=== PATIENT | female | born 2000 | race Caucasian/White ===

== ENCOUNTER 2020-03-25 11:49 | Emergency (ER) | payer MEDICAID ==
[~2020-03-25] VITALS: Ht 170 cm; Wt 136.0 kg
--- NOTE | 2020-03-25 12:26 | ED GI ---
General Chief Complaint: Abdominal/GI Problems Stated Complaint: N/V Nursing Triage Note: Pt reports n/v/d since yesterday. Also c/o intermittent midline abd cramping Sepsis Screen: No Definite Risk Source of Information: Patient Exam Limitations: No Limitations History of Present Illness Date Seen by Provider: Mar 25, 2020 Time Seen by Provider: 12:25 Initial Comments Very pleasant 20-year-old female presents to ER with nausea vomiting diarrhea that began yesterday. Diarrhea is watery and without blood or mucus. She has not had any diarrhea today but she did vomit 3 times today. She has some periumbilical abdominal pain and some mid back pain. No fevers or chills. She has not eaten out and has not been around anybody with nausea vomiting diarrhea. Timing/Duration: 1-2 Days Severity/Quality: Cramping Radiation: Periumbilical Activities at Onset: None Associated Symptoms: Nausea/Vomiting Allergies and Home Medications Allergies Coded Allergies: No Known Drug Allergies (Unverified , 03/25/20) Patient Home Medication List Home Medication List Reviewed: Yes Review of Systems Review of Systems Constitutional: see HPI EENTM: No Symptoms Reported Respiratory: No Symptoms Reported Cardiovascular: No Symptoms Reported Gastrointestinal: See HPI, Abdominal Pain Genitourinary: No Symptoms Reported Musculoskeletal: no symptoms reported Skin: no symptoms reported Psychiatric/Neurological: No Symptoms Reported Endocrine: No Symptoms Reported Hematologic/Lymphatic: No Symptoms Reported Past Ubziotu-Dkhzmk-Iwovhd Hx Patient Social History Alcohol Use: Denies Use Smoking Status: Never a Smoker Recent Infectious Disease Expo: No Recent Hopitalizations: No Seasonal Allergies Seasonal Allergies: No Past Medical History Surgeries: Yes (foot surgery x2) Section Respiratory: No Cardiac: No Neurological: No Genitourinary: No Gastrointestinal: No Musculoskeletal: No Endocrine: No HEENT: No Cancer: No Psychosocial: No Integumentary: No Blood Disorders: No Physical Exam Vital Signs Vital Signs - First Documented 03/25/20 12:09 Temp 36.7 Pulse 99 Resp 18 B/P (MAP) 135/96 (109) Pulse Ox 96 O2 Delivery Room Air Capillary Refill : Less Than 3 Seconds Height/Weight/BMI Height: '" Weight: lbs. oz. kg; 47.00 BMI Method: General Appearance: WD/WN, no apparent distress Neck: non-tender, full range of motion Respiratory: no respiratory distress, no accessory muscle use Gastrointestinal: normal bowel sounds, soft, tenderness Extremities: normal range of motion, non-tender Neurologic/Psychiatric: alert, normal mood/affect, oriented x 3 Skin: normal color, warm/dry Progress/Results/Core Measures Results/Orders Lab Results Laboratory Tests Test 03/25/20 12:24 03/25/20 13:02 Range/Units White Blood Count 12.0 H 4.3-11.0 10^3/uL Red Blood Count 5.35 H 3.80-5.11 10^6/uL Hemoglobin 14.2 11.5-16.0 g/dL Hematocrit 43 35-52 % Mean Corpuscular Volume 80 80-99 fL Mean Corpuscular Hemoglobin 27 25-34 pg Mean Corpuscular Hemoglobin Concent 33 32-36 g/dL Red Cell Distribution Width 13.8 10.0-14.5 % Platelet Count 257 130-400 10^3/uL Mean Platelet Volume 12.3 H 9.0-12.2 fL Immature Granulocyte % (Auto) 0 % Neutrophils (%) (Auto) 68 42-75 % Lymphocytes (%) (Auto) 21 12-44 % Monocytes (%) (Auto) 7 0-12 % Eosinophils (%) (Auto) 2 0-10 % Basophils (%) (Auto) 1 0-10 % Neutrophils # (Auto) 8.2 H 1.8-7.8 10^3/uL Lymphocytes # (Auto) 2.6 1.0-4.0 10^3/uL Monocytes # (Auto) 0.8 0.0-1.0 10^3/uL Eosinophils # (Auto) 0.3 0.0-0.3 10^3/uL Basophils # (Auto) 0.1 0.0-0.1 10^3/uL Immature Granulocyte # (Auto) 0.1 0.0-0.1 10^3/uL Sodium Level 137 135-145 MMOL/L Potassium Level 4.0 3.6-5.0 MMOL/L Chloride Level 102 98-107 MMOL/L Carbon Dioxide Level 22 21-32 MMOL/L Anion Gap 13 5-14 MMOL/L Blood Urea Nitrogen 9 7-18 MG/DL Creatinine 0.84 0.60-1.30 MG/DL Estimat Glomerular Filtration Rate > 60 BUN/Creatinine Ratio 11 Glucose Level 265 H 70-105 MG/DL Calcium Level 9.1 8.5-10.1 MG/DL Corrected Calcium 9.1 8.5-10.1 MG/DL Total Bilirubin 0.5 0.1-1.0 MG/DL Aspartate Amino Transf (AST/SGOT) 58 H 5-34 U/L Alanine Aminotransferase (ALT/SGPT) 38 0-55 U/L Alkaline Phosphatase 144 H 40-136 U/L Total Protein 8.0 6.4-8.2 GM/DL Albumin 4.0 3.2-4.5 GM/DL Lipase 23 8-78 U/L Procalcitonin 0.04 <0.10 NG/ML Serum Test, Qualitative NEGATIVE NEGATIVE Urine Color YELLOW Urine Clarity CLEAR Urine pH 6.5 5-9 Urine Specific [place] 1.015 L 1.016-1.022 Urine Protein 1+ H NEGATIVE Urine Glucose (UA) NEGATIVE NEGATIVE Urine Ketones TRACE H NEGATIVE Urine Nitrite NEGATIVE NEGATIVE Urine Bilirubin NEGATIVE NEGATIVE Urine Urobilinogen 0.2 < = 1.0 MG/DL Urine Leukocyte Esterase NEGATIVE NEGATIVE Urine RBC (Auto) NEGATIVE NEGATIVE Urine RBC NONE /HPF Urine WBC 2-5 /HPF Urine Squamous Epithelial Cells 10-25 H /HPF Urine Crystals NONE /LPF Urine Bacteria TRACE /HPF Urine Casts NONE /LPF Urine Mucus NEGATIVE /LPF Urine Culture Indicated NO My Orders Orders - CLAIR SALDIVAR APRN Cbc With Automated Diff (03/25/20 12:20) Comprehensive Metabolic Panel (03/25/20 12:20) Ed Iv/Invasive Line Start (03/25/20 12:20) Hcg,Qualitative Serum (03/25/20 12:20) Ns Iv 1000 Ml (Sodium Chloride 0.9%) (03/25/20 12:30) Ondansetron Injection (Zofran Injectio (03/25/20 12:30) Lipase (03/25/20 12:23) Hyoscyamine Sl Tablet (Levsin Sl Tablet) (03/25/20 12:30) Ketorolac Injection (Toradol Injection) (03/25/20 12:30) Procalcitonin (Pct) (03/25/20 12:23) Medications Given in ED Current Medications Medications Dose Ordered Sig/Maryanne Route Start Time Stop Time Status Last Admin Dose Admin Hyoscyamine Sulfate 0.25 mg ONCE ONCE PO 03/25/20 12:30 03/25/20 12:31 DC 03/25/20 12:32 0.25 MG Ketorolac Tromethamine 15 mg ONCE ONCE IVP 03/25/20 12:30 03/25/20 12:31 DC 03/25/20 12:34 15 MG Ondansetron HCl 8 mg ONCE ONCE IVP 03/25/20 12:30 03/25/20 12:31 DC 03/25/20 12:32 8 MG Vital Signs/I&O 03/25/20 12:09 Temp 36.7 Pulse 99 Resp 18 B/P (MAP) 135/96 (109) Pulse Ox 96 O2 Delivery Room Air Blood Pressure Mean: 109 Departure Impression Primary Impression: Nausea and vomiting Additional Impression: Diarrhea Disposition: 01 HOME, SELF-CARE Condition: Stable Departure-Patient Inst. Decision time for Depature: 13:36 Referrals: NO,LOCAL PHYSICIAN (PCP/Family) Primary Care Physician Patient Instructions: No Instuctions Given Add. Discharge Instructions: 1. Return to ER for any concerns. Drink plenty of liquids such as Pedialyte or diluted Gatorade or plain water is fine as well. Return to ER for any worsening. Follow-up with your doctor next week. Nausea medication as directed and you can use [id number] Imodium as well for diarrhea control. All discharge instructions reviewed with patient and/or family. Voiced understanding. Scripts Ondansetron (Ondansetron Odt) 4 Mg Tab.rapdis 4 MG PO Q6H PRN for NAUSEA/VOMITING, #8 TAB 0 Refills Prov: CLAIR SALDIVAR APRN 03/25/20 CLAIR SALDIVAR APRN Mar 25, 2020 12:26
[2020-03-25] MEDS ORDERED: HYOSCYAMINE 0.125 MG (LEVSIN) TAB PO ONE (12:30)
[2020-03-25] MEDS ORDERED: NS IV 1000 ML 1,000 ML IV SCH (12:30)
[2020-03-25] MEDS ORDERED: ONDANSETRON 4 MG/2 ML (SDV) Z0FRAN IVP ONE (12:30)
[2020-03-25] MEDS ORDERED: KETOROLAC 30 MG/ML VIAL IVP ONE (12:30)
[2020-03-25 12:31] LABS: BASOPHILS # (AUTO) 0.1 10^3/uL (0.0-0.1); BASOPHILS % (AUTO) 1 % (0-10); EOSINOPHILS # (AUTO) 0.3 10^3/uL (0.0-0.3); EOSINOPHILS % (AUTO) 2 % (0-10); HEMATOCRIT 43 % (35-52); HEMOGLOBIN 14.2 g/dL (11.5-16.0); LYMPHOCYTES # (AUTO) 2.6 10^3/uL (1.0-4.0); LYMPHOCYTES % (AUTO) 21 % (12-44); MEAN CORPUSCULAR HEMOGLOBIN 27 pg (25-34); MEAN CORPUSCULAR HGB CONC 33 g/dL (32-36); MEAN CORPUSCULAR VOLUME 80 fL (80-99); MEAN PLATELET VOLUME 12.3 fL (9.0-12.2); MONOCYTES # (AUTO) 0.8 10^3/uL (0.0-1.0); MONOCYTES % (AUTO) 7 % (0-12); NEUTROPHILS # (AUTO) 8.2 10^3/uL (1.8-7.8); NEUTROPHILS % (AUTO) 68 % (42-75); PLATELET COUNT 257 10^3/uL (130-400)
[2020-03-25 12:40] LABS: CHLORIDE 102 MMOL/L (98-107); SODIUM 137 MMOL/L (135-145)
[2020-03-25 12:41] LABS: CALCIUM 9.1 MG/DL (8.5-10.1)
[2020-03-25 12:42] LABS: GLUCOSE 265 MG/DL (70-105)
[2020-03-25 12:43] LABS: CARBON DIOXIDE 22 MMOL/L (21-32)
[2020-03-25 12:44] LABS: BILIRUBIN,TOTAL 0.5 MG/DL (0.1-1.0)
[2020-03-25 12:45] LABS: ALKALINE PHOSPHATASE 144 U/L (40-136)
[2020-03-25 12:46] LABS: CREATININE SERUM 0.84 MG/DL (0.60-1.30); GFR ESTIMATED > 60
[2020-03-25 12:47] LABS: BUN/CREATININE RATIO 11
[2020-03-25 12:48] LABS: ALANINE AMINOTRANSFERASE 38 U/L (0-55)
[2020-03-25 12:49] LABS: LIPASE 23 U/L (8-78)
[2020-03-25 13:09] LABS: BILIRUBIN,URINE NEGATIVE (NEGATIVE); CLARITY,URINE CLEAR; COLOR,URINE YELLOW; GLUCOSE, URINE (UA) NEGATIVE (NEGATIVE); KETONES,URINE TRACE (NEGATIVE); LEUKOCYTE ESTERASE ,URINE NEGATIVE (NEGATIVE); NITRITE,URINE NEGATIVE (NEGATIVE); PH,URINE 6.5 (5-9); PROTEIN,URINE 1+ (NEGATIVE)
[2020-03-25 13:16] LABS: BACTERIA,URINE TRACE /HPF
[2020-03-25] MEDS ORDERED: ONDA4TAB11 PO (13:44)
[2020-03-25 14:12] VITALS: BP 135/110
== END 2020-03-25 14:12 | disposition home or self-care (01) ==
LOC: EDUNIT# 11:49 → ER 11:50
DX: R11.2 Nausea with vomiting, unspecified (principal); R19.7 Diarrhea, unspecified
CPT/HCPCS: 36415; 80053; 81000; 83690; 84145; 84703; 85025

== ENCOUNTER 2020-09-14 04:56 | Emergency (ER) | payer MEDICAID ==
[~2020-09-14] VITALS: Ht 170 cm; Wt 136.0 kg
[~2020-09-14 04:56] MED LIST: ONDA4TAB11 PO
[2020-09-14] MEDS ORDERED: KETOROLAC 30 MG/ML VIAL ONE (05:43)
[2020-09-14] MEDS ORDERED: LACTATED RINGERS 1,000 ML IV ONE ×2 (05:43→05:45)
[2020-09-14] MEDS ORDERED: ONDANSETRON 4 MG/2 ML (SDV) Z0FRAN ONE (05:43)
[2020-09-14] MEDS ORDERED: ACETAMINOPHEN 500 MG TAB (TYLENOL) ONE (05:43)
[2020-09-14] MEDS ORDERED: ACETAMINOPHEN 500 MG TAB (TYLENOL) PO ONE (05:45)
[2020-09-14] MEDS ORDERED: KETOROLAC 30 MG/ML VIAL IVP ONE (05:45)
[2020-09-14] MEDS ORDERED: ONDANSETRON 4 MG/2 ML (SDV) Z0FRAN IVP ONE (05:45)
[2020-09-14 05:57] LABS: BILIRUBIN,URINE NEGATIVE (NEGATIVE); CLARITY,URINE SL CLOUDY; COLOR,URINE YELLOW; GLUCOSE, URINE (UA) 2+ (NEGATIVE); KETONES,URINE 1+ (NEGATIVE); LEUKOCYTE ESTERASE ,URINE NEGATIVE (NEGATIVE); NITRITE,URINE NEGATIVE (NEGATIVE); PROTEIN,URINE TRACE (NEGATIVE)
[2020-09-14 06:00] LABS: BASOPHILS % (AUTO) 0 % (0-10); EOSINOPHILS % (AUTO) 0 % (0-10); HEMATOCRIT 42 % (35-52); HEMOGLOBIN 13.3 g/dL (11.5-16.0); LYMPHOCYTES % (AUTO) 18 % (12-44); MEAN CORPUSCULAR HEMOGLOBIN 25 pg (25-34); MEAN CORPUSCULAR HGB CONC 32 g/dL (32-36); MEAN CORPUSCULAR VOLUME 77 fL (80-99); MEAN PLATELET VOLUME 12.2 fL (9.0-12.2); MONOCYTES # (AUTO) 1.2 10^3/uL (0.0-1.0); MONOCYTES % (AUTO) 21 % (0-12); NEUTROPHILS # (AUTO) 3.5 10^3/uL (1.8-7.8); NEUTROPHILS % (AUTO) 60 % (42-75); PLATELET COUNT 248 10^3/uL (130-400); WHITE BLOOD COUNT 5.8 10^3/uL (4.3-11.0)
[2020-09-14 06:08] LABS: ALBUMIN 4.1 GM/DL (3.2-4.5); POTASSIUM 3.8 MMOL/L (3.6-5.0)
[2020-09-14 06:09] LABS: CALCIUM 9.1 MG/DL (8.5-10.1)
[2020-09-14 06:11] LABS: TOTAL PROTEIN 7.8 GM/DL (6.4-8.2)
[2020-09-14 06:12] LABS: BILIRUBIN,TOTAL 0.3 MG/DL (0.1-1.0)
[2020-09-14 06:14] LABS: CREATININE SERUM 0.83 MG/DL (0.60-1.30)
[2020-09-14 06:23] LABS: BACTERIA,URINE FEW /HPF
[2020-09-14] MEDS ORDERED: ONDA4TAB11 SL (06:48)
--- NOTE | 2020-09-14 06:48 | ED General ---
General Chief Complaint: Cough/Cold/Flu Symptoms Stated Complaint: VOMITING,POSS FEVER,JIMENEZ,EYES BURN,BODY ACHES Nursing Triage Note: PT PRESENTS TO THE ED C/O DIZZYNESS, CONGESTION, FATIGUE, EXERTIONAL SOB, AND FEVER THAT ALL ONSET THIS SATURDAY. PT STATES SHE HAS HAD INCREASING DIZZYNESS AND POOR APPETITE, STATES ALL HER FOOD TASTES BAD. ALSO REPORTS PRODUCTIVE COUGH AND SEVERE JIMENEZ Source of Information: Patient Exam Limitations: No Limitations History of Present Illness Date Seen by Provider: Sep 14, 2020 Allergies and Home Medications Allergies Coded Allergies: No Known Drug Allergies (Unverified , 03/25/20) Home Medications Ondansetron 4 Mg Tab.rapdis, 4 MG PO Q6H PRN for NAUSEA/VOMITING Prescribed by: CLAIR SALDIVAR on 03/25/20 1344 Ondansetron 4 Mg Tab.rapdis, 4 MG SL Q4H PRN for NAUSEA/VOMITING Prescribed by: CHUY KIM on 09/14/20 0648 Past Yxbcvyz-Ynwnkb-Fxiejl Hx Patient Social History Tobacco Use?: No Substance use?: No Alcohol Use?: No Immunizations Up To Date Influenza Vaccine Up-to-Date: Yes; Up-to-Date Seasonal Allergies Seasonal Allergies: No Past Medical History Surgery/Hospitalization HX: NIDDM Surgeries: Yes (foot surgery x2) Section Respiratory: No Cardiac: No Neurological: No Last Menstrual Period: Sep 10, 2020 Genitourinary: No Gastrointestinal: No Musculoskeletal: No Endocrine: No HEENT: No Cancer: No Psychosocial: No Integumentary: No Blood Disorders: No Physical Exam Vital Signs Vital Signs - First Documented 09/14/20 05:09 Temp 38.3 Pulse 112 Resp 22 B/P (MAP) 142/98 (113) Pulse Ox 96 O2 Delivery Room Air Capillary Refill : Less Than 3 Seconds Height, Weight, BMI Height: '" Weight: lbs. oz. kg; 47.00 BMI Method: Progress/Results/Core Measures Suspected Sepsis SIRS Temperature: Pulse: 112 Respiratory Rate: 22 Laboratory Tests 09/14/20 05:36: White Blood Count 5.8 Blood Pressure 142 /98 Mean: 113 Laboratory Tests 09/14/20 05:36: Creatinine 0.83, Platelet Count 248, Total Bilirubin 0.3 Results/Orders Lab Results Laboratory Tests Test 09/14/20 05:36 Range/Units White Blood Count 5.8 4.3-11.0 10^3/uL Red Blood Count 5.43 H 3.80-5.11 10^6/uL Hemoglobin 13.3 11.5-16.0 g/dL Hematocrit 42 35-52 % Mean Corpuscular Volume 77 L 80-99 fL Mean Corpuscular Hemoglobin 25 25-34 pg Mean Corpuscular Hemoglobin Concent 32 32-36 g/dL Red Cell Distribution Width 15.2 H 10.0-14.5 % Platelet Count 248 130-400 10^3/uL Mean Platelet Volume 12.2 9.0-12.2 fL Immature Granulocyte % (Auto) 1 % Neutrophils (%) (Auto) 60 42-75 % Lymphocytes (%) (Auto) 18 12-44 % Monocytes (%) (Auto) 21 H 0-12 % Eosinophils (%) (Auto) 0 0-10 % Basophils (%) (Auto) 0 0-10 % Neutrophils # (Auto) 3.5 1.8-7.8 10^3/uL Lymphocytes # (Auto) 1.0 1.0-4.0 10^3/uL Monocytes # (Auto) 1.2 H 0.0-1.0 10^3/uL Eosinophils # (Auto) 0.0 0.0-0.3 10^3/uL Basophils # (Auto) 0.0 0.0-0.1 10^3/uL Immature Granulocyte # (Auto) 0.1 0.0-0.1 10^3/uL Neutrophils % (Manual) 48 % Lymphocytes % (Manual) 24 % Monocytes % (Manual) 19 % Metamyelocytes % 3 % Band Neutrophils 6 % Microcytosis MODERATE Urine Color YELLOW Urine Clarity SL CLOUDY Urine pH 6.0 5-9 Urine Specific [place] >=1.030 1.016-1.022 Urine Protein TRACE H NEGATIVE Urine Glucose (UA) 2+ H NEGATIVE Urine Ketones 1+ H NEGATIVE Urine Nitrite NEGATIVE NEGATIVE Urine Bilirubin NEGATIVE NEGATIVE Urine Urobilinogen 0.2 < = 1.0 MG/DL Urine Leukocyte Esterase NEGATIVE NEGATIVE Urine RBC (Auto) NEGATIVE NEGATIVE Urine RBC NONE /HPF Urine WBC 2-5 /HPF Urine Squamous Epithelial Cells 10-25 H /HPF Urine Crystals NONE /LPF Urine Bacteria FEW H /HPF Urine Casts NONE /LPF Urine Mucus SMALL H /LPF Urine Culture Indicated YES Sodium Level 136 135-145 MMOL/L Potassium Level 3.8 3.6-5.0 MMOL/L Chloride Level 103 98-107 MMOL/L Carbon Dioxide Level 20 L 21-32 MMOL/L Anion Gap 13 5-14 MMOL/L Blood Urea Nitrogen 9 7-18 MG/DL Creatinine 0.83 0.60-1.30 MG/DL Estimat Glomerular Filtration Rate 88 BUN/Creatinine Ratio 11 Glucose Level 189 H 70-105 MG/DL Calcium Level 9.1 8.5-10.1 MG/DL Corrected Calcium 9.0 8.5-10.1 MG/DL Magnesium Level 2.0 1.6-2.4 MG/DL Total Bilirubin 0.3 0.1-1.0 MG/DL Aspartate Amino Transf (AST/SGOT) 71 H 5-34 U/L Alanine Aminotransferase (ALT/SGPT) 58 H 0-55 U/L Alkaline Phosphatase 116 40-136 U/L Total Protein 7.8 6.4-8.2 GM/DL Albumin 4.1 3.2-4.5 GM/DL Influenza Type A (RT-PCR) Not Detected Not Detecte Influenza Type B (RT-PCR) Not Detected Not Detecte SARS-CoV-2 RNA (RT-PCR) Detected H Not Detecte My Orders Orders - CHUY SNEED MD Covid 19 Inhouse Test (09/14/20 05:16) Influenza A And B By Pcr (09/14/20 05:16) Acetaminophen Tablet (Tylenol Tablet) (09/14/20 05:45) Ondansetron Injection (Zofran Injectio (09/14/20 05:45) Ketorolac Injection (Toradol Injection) (09/14/20 05:45) Lactated Ringers (Lr 1000 Ml Iv Solution (09/14/20 05:45) Cbc With Automated Diff (09/14/20 05:44) Comprehensive Metabolic Panel (09/14/20 05:44) Magnesium (09/14/20 05:44) Ua Culture If Indicated (09/14/20 05:44) Urine Bedside (09/14/20 05:44) Acetaminophen Tablet (Tylenol Tablet) (09/14/20 05:43) Ketorolac Injection (Toradol Injection) (09/14/20 05:43) Ondansetron Injection (Zofran Injectio (09/14/20 05:43) Lactated Ringers (Lr 1000 Ml Iv Solution (09/14/20 05:43) Manual Differential (09/14/20 05:36) Urine Culture (09/14/20 05:36) Medications Given in ED Current Medications Medications Dose Ordered Sig/Maryanne Route Start Time Stop Time Status Last Admin Dose Admin Acetaminophen 1,000 mg ONCE ONCE PO 09/14/20 05:45 09/14/20 05:46 DC 09/14/20 05:47 1,000 MG Ketorolac Tromethamine 15 mg ONCE ONCE IVP 09/14/20 05:45 09/14/20 05:46 DC 09/14/20 05:46 15 MG Lactated Ringer's 1,000 ml @ 0 mls/hr Q0M ONCE IV 09/14/20 05:45 09/14/20 05:46 DC 09/14/20 05:46 1,000 MLS/HR Ondansetron HCl 4 mg ONCE ONCE IVP 09/14/20 05:45 09/14/20 05:46 DC 09/14/20 05:46 4 MG Vital Signs/I&O 09/14/20 09/14/20 09/14/20 09/14/20 05:09 05:10 05:46 05:47 Temp 38.3 38.7 38.7 Pulse 112 Resp 22 B/P (MAP) 142/98 (113) Pulse Ox 96 O2 Delivery Room Air Room Air Capillary Refill : Less Than 3 Seconds Blood Pressure Mean: 113 Departure Impression Primary Impression: COVID-19 Additional Impression: Hypovolemia Disposition: 01 HOME, SELF-CARE Condition: Improved Departure-Patient Inst. Decision time for Depature: 06:44 Referrals: NO,LOCAL PHYSICIAN (PCP/Family) Primary Care Physician Patient Instructions: COVID-19 Overview, REGEN-COV (casirivimab and imdevimab) FDA Fact Sheet Add. Discharge Instructions: Review the fact sheet for monoclonal antibodies attached. The pharmacy should be calling you to schedule an appointment for an infusion. Drink lots of clear liquids. You may take Tylenol and/or ibuprofen for pain and fever. Use the Zofran as prescribed for nausea and vomiting. Remain in quarantine for at least 10 days from onset of symptoms. Call with questions or concerns. If possible obtain a pulse oximeter and measure your oxygen saturation often, especially if you are short of breath. If you have repeated measurements under 92% or any measurements under 90% please return to the ER. All discharge instructions reviewed with patient and/or family. Voiced understanding. Scripts Ondansetron (Ondansetron Odt) 4 Mg Tab.rapdis 4 MG SL Q4H PRN for NAUSEA/VOMITING, #10 TAB Prov: CHUY SNEED MD 09/14/20 Work/School Note: Work Release Form Date Seen in the Emergency Department: Sep 14, 2020 Return to Work: Sep 22, 2020 Other Restrictions Listed Below: May return after 10-day quarantine if Covid symptoms resolve. CHUY SNEED MD Sep 14, 2020 06:48
[2020-09-14 06:53] LABS: BAND NEUTROPHILS 6 %; LYMPHOCYTES % (MANUAL) 24 %; METAMYELOCYTES % 3 %; MICROCYTOSIS MODERATE; MONOCYTES % (MANUAL) 19 %; NEUTROPHILS % (MANUAL) 48 %
[2020-09-14 06:59] VITALS: BP 142/98
== END 2020-09-14 06:59 | disposition home or self-care (01) ==
LOC: EDUNIT# 04:56 → ER 05:01
DX: U07.1 COVID-19 (principal); E86.1 Hypovolemia; E11.9 Type 2 diabetes mellitus without complications
CPT/HCPCS: 36415; 80053; 81000; 83735; 84703; 85007; 85027; 87088; 87636; 99282

== ENCOUNTER 2020-12-13 10:48 | Emergency (ER) | payer MEDICAID ==
[~2020-12-13] VITALS: Ht 167 cm; Wt 133.0 kg
[~2020-12-13 10:48] MED LIST changes: +CEPH500T PO; +ONDA4TAB11 SL
[2020-12-13] MEDS ORDERED: AMOXICILLIN 500 MG (POLYMOX) CAP PO STA (10:57)
[2020-12-13] MEDS ORDERED: AMOX500C2 PO (11:01)
[2020-12-13] MEDS ORDERED: PRD20T PO (11:01)
--- NOTE | 2020-12-13 11:01 | ED EENT ---
History of Present Illness General Stated Complaint: SORE THROAT Source: patient Exam Limitations: no limitations History of Present Illness Date Seen by Provider: Dec 13, 2020 Time Seen by Provider: 10:57 Initial Comments To ER with reports that she awakened with a sore throat this morning with rhinorrhea and she states that she is gagging because her throat feels swollen. No fever no chills she had Covid in September. Her sister had tonsillitis last week. Timing/Duration: abrupt Severity: moderate Location: throat Associated Symptoms: denies symptoms Allergies and Home Medications Allergies Coded Allergies: No Known Drug Allergies (Unverified , 03/25/20) Patient Home Medication List Home Medication List Reviewed: Yes Cephalexin (Cephalexin) 500 Mg Tablet, 500 MG PO BID, (Reported) Entered as Reported by: NAVID GILLESPIE on 10/04/20 1615 Ondansetron (Ondansetron Odt) 4 Mg Tab.rapdis, 4 MG PO Q6H PRN for NAUSEA/VOMITING Prescribed by: CLAIR SALDIVAR on 03/25/20 1344 Ondansetron (Ondansetron Odt) 4 Mg Tab.rapdis, 4 MG SL Q4H PRN for NAUSEA/VOMITING Prescribed by: CHUY KIM on 09/14/20 0648 Review of Systems Review of Systems Constitutional: see HPI Eyes: No Symptoms Reported Ears: No Symptoms Reported Nose: no symptoms reported Mouth: no symptoms reported Throat: see HPI Respiratory: no symptoms reported Cardiovascular: no symptoms reported Musculoskeletal: no symptoms reported Past Rlyibgy-Ptswlu-Dzxqaz Hx Seasonal Allergies Seasonal Allergies: No Past Medical History Surgery/Hospitalization HX: NIDDM Surgeries: Yes (foot surgery x2) Section Respiratory: No Cardiac: No Neurological: No Genitourinary: No Gastrointestinal: No Musculoskeletal: No Endocrine: No HEENT: No Cancer: No Psychosocial: No Integumentary: No Blood Disorders: No Physical Exam Height, Weight, BMI Height: '" Weight: lbs. oz. kg; 47.00 BMI Method: General Appearance: WD/WN, no apparent distress Eyes: bilateral eye normal inspection, bilateral eye PERRL, bilateral eye EOMI Ears: bilateral ear auricle normal, bilateral ear canal normal, bilateral ear TM normal Mouth/Throat: No tongue swollen, No tonsillar exudate, No tonsillar swelling, No trismus; uvula swelling, other (Edema and slight erythema of the uvula.) Neck: non-tender, full range of motion; No lymphadenopathy (R), No lymphadenopathy (L) Respiratory: no respiratory distress, no accessory muscle use Neurologic/Psychiatric: alert, normal mood/affect, oriented x 3 Skin: normal color, warm/dry Progress/Results/Core Measures Results/Orders My Orders Orders - CLAIR SALDIVAR APRN Dexamethasone Injection (Decadron Inje (12/13/20 11:00) Amoxicillin Capsule (Polymox Capsule) (12/13/20 10:57) Departure Impression Primary Impression: Uvulitis Disposition: HOME, SELF-CARE Condition: Stable Departure-Patient Inst. Decision time for Depature: 11:00 Referrals: [facility] (PCP) Primary Care Physician ROSA SALDIVAR APRN (Family) Primary Care Physician Patient Instructions: Sore Throat, Adult (DC) Add. Discharge Instructions: 1. Steroids and antibiotics as directed. Return to ER for any concerns follow- up with your doctor next week. Scripts Amoxicillin (Amoxicillin) 500 Mg Capsule 500 MG PO TID, #15 CAP 0 Refills Prov: CLAIR SALDIVAR APRN 12/13/20 Prednisone (Prednisone) 20 Mg Tab 40 MG PO DAILY, #4 TAB 0 Refills Prov: CLAIR SALDIVAR APRN 12/13/20 CLAIR SALDIVAR APRN Dec 13, 2020 11:01
[2020-12-13 11:10] VITALS: BP 140/91
== END 2020-12-13 11:20 | disposition home or self-care (01) ==
LOC: EDUNIT# 10:48 → ER 10:50
DX: K12.2 Cellulitis and abscess of mouth (principal); Z86.16 Personal history of COVID-19
CPT/HCPCS: 87430; 99284